=== PATIENT | male | born 1990 | race Caucasian/White ===

== ENCOUNTER 2018-07-16 12:00 | Emergency (ER) | payer OTHER, SELFPAY ==
[2018-07-16 12:07] VITALS: BP 150/87; PULSE 76; RESP 18; TEMP 36.7; O2SAT 97
--- NOTE | 2018-07-16 13:18 | ED.GENADUL_ITS ---
Discharge Plan Disposition Patient Disposition: HOME Condition: Stable Discharge Details Chief Complaint: RespSymp Clinical Impression: Influenza A Primary Care Provider: Debi,Local ED Provider: Karen Ortiz Discharge Instructions Instructions: H1N1 Influenza (ED) Additional Instructions: Drink plenty of fluids and get plenty of rest. Take Tylenol or Motrin as needed and directed for pain. You will receive a call from care management regarding a follow-up appoint with the primary care doctor. Return immediately to the emergency department with any worsening or new concerning symptoms. Stand Alone Forms: Work Release Discharge Data Discharge Date/Time-TO BE ENTERED AT DEPARTURE: 07/16/18 15:01 Discharge Physician: Karen Ortiz Medical Decision Making 28-year-old male with no past medical history who presents with tactile fevers, nasal congestion, cough with green sputum, chest congestion for the past 3 days. Patient denies chest pain, shortness of breath, sore throat, ear pain, vomiting or diarrhea. Patient states he has been taking ilix-dff-incywey medication including NyQuil and Marcia-[place]. Patient states he did not receive a flu shot this year. Blood pressure mildly hypertensive, otherwise vitals within normal limits. Afebrile. Patient appears nontoxic and in no acute distress. Hyperemic nares with mild discharge, otherwise normal ent exam. Lungs CTA. Will check a rapid influenza. 1400 -- rapid influenza positive for influenza A. As patient symptoms are present more than 48 hours, and he has no history of immunodeficiencies, no indication to treatment with Tamiflu at this time patient is agreeable. Instructed on symptomatic treatment, rest and fluids. Medical Records Medical records reviewed: Yes I reviewed the patient's medical records. Lab Data Lab results reviewed: Yes I reviewed the patient's lab results. Influenza A positive HPI General Mode of arrival: ambulatory . Date/Time Provider Initiated Documentation: 07/16/18 12:13 . Limitations to Documentation: no limitations . Information obtained by: patient . HPI Narrative: Patient is a 28-year-old male with no past medical history who presents with tactile fevers, nasal congestion, cough with green sputum, chest congestion for the past 3 days. Patient denies chest pain, shortness of breath, sore throat, ear pain, vomiting or diarrhea. Patient states he has been taking hcjq-qoa-exdrthd medication including NyQuil and [place]cia[place]. Patient states he did not receive a flu shot this year. Related Data Allergies Allergy/AdvReac Type Severity Reaction Status Date / Time No Known Allergies Allergy Unverified 07/16/18 12:11 General Stated Complaint: RespSymp JOANNA: 4 Review of Systems Review of Systems All systems reviewed & are unremarkable except as noted in HPI and below Constitutional Reports as per HPI, Denies chills and Reports fever(s) (tactile) Eyes Denies blurry vision ENT Denies dizziness, Reports nasal congestion, Reports nasal discharge, Denies sore throat and Denies throat swelling Cardiovascular Denies chest pain and Denies dyspnea Respiratory Denies dyspnea Gastrointestinal Denies abdominal pain, Denies diarrhea and Denies vomiting Genitourinary Denies hematuria and Denies dysuria Musculoskeletal Denies back pain and Denies numbness Integumentary/Breasts Denies lesions and Denies rash Neurologic Denies dizziness and Denies numbness Allergic/Immunologic Denies throat swelling PFSH Medical History No significant past medical history (Acute) Surgical History No significant past surgical history (Acute) Social History Smoking/Tobacco Use Status: Never alcohol intake: current alcohol intake frequency: a few times a month substance use type: does not use Exam Const General: cooperative, healthy appearing and no acute distress HENMT Head: normal to inspection Ears: hearing grossly normal bilaterally and TM's normal bilaterally General nose exam: external nose normal, nasal discharge clear bilaterally and other (hyperemic nares) Face and sinus: normal facial exam and sinuses nontender Mouth: oral mucosae normal Teeth and gingiva: dentition normal Throat: posterior oropharynx normal Eyes General: appearance normal, both eyes and all related structures Pupils: PERRL EOM: EOM intact bilaterally Neck Neck: normal visual inspection and No submandibular swelling Lymphatic: no lymphadenopathy noted Resp Effort & Inspection: normal respiratory effort and able to speak in complete sentences Auscultation: clear to auscultation bilaterally Cardio Rate: regular rate Rhythm: regular rhythm Skin General skin exam: no rashes or lesions noted Neuro General: alert, awake and oriented x3 Cognition: normal cognition Speech: speech normal Motor: muscle tone normal throughout Sensory Exam: no sensory deficits noted Extrem General: normal to inspection, full ROM and no edema Psych Appearance: grossly normal Mental Status: mental status grossly normal Speech and Movement: speech and movement normal Affect: normal affect Course Vital Signs Temperature 98.1 F 07/16/18 12:07 Pulse 76 07/16/18 12:07 Respiratory Rate 18 07/16/18 12:07 Blood Pressure 150/87 H 07/16/18 12:07 Pulse Oximetry 97 07/16/18 12:07 Temperature 98.1 F 07/16/18 12:07 Temperature Source Temporal Artery Scan 07/16/18 12:07 Pulse 76 07/16/18 12:07 Respiratory Rate 18 07/16/18 12:07 Respiratory Effort Non-Labored 07/16/18 12:09 Blood Pressure 150/87 H 07/16/18 12:07 Blood Pressure Position Sitting 07/16/18 12:07 Pulse Oximetry 97 07/16/18 12:07 Oxygen Delivery Method Room Air 07/16/18 12:07 Oxygen Flow Rate 0 07/16/18 12:07 Pain Level 0 07/16/18 12:07
--- NOTE | 2018-07-17 08:00 | PDOC.ERCMPRO ---
Care Management Progress Note 07/17-Dr. 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 Referral faxed to [facility] this am.
--- NOTE | 2018-07-17 08:01 | CMPROGNOTE_ITS ---
Care Management Progress Note 07/17-Dr. 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 Referral faxed to [facility] this am.
== END 2018-07-16 15:01 | disposition home or self-care (01) ==
PROVIDERS: Emergency Provider Physician Assistant
DX: J11.1 Influenza due to unidentified influenza virus with other respiratory manifestations (principal)
CPT/HCPCS: 87449; 99282

== ENCOUNTER 2024-09-24 18:05 | Emergency (ER) | payer MEDICAID, SELFPAY ==
[2024-09-24 18:09] VITALS: BP 131/79; PULSE 76; RESP 16; TEMP 36.6; O2SAT 96
--- NOTE | 2024-09-24 18:17 | ED.GENADUL_ITS ---
Discharge Plan Disposition Patient Disposition: Home Condition: Stable Discharge Details Clinical Impression: Laceration of right thigh Primary Care Provider: Harish Coon ED Provider: Jaswant Marsh Home Meds and New Rx's Prescriptions: No Action triamcinolone acetonide 0.1 % cream 1 applic topical BID PRN (Reason: itching) Qty: 30 0RF Rx Instructions: for no longer than 2 weeks at a time escitalopram oxalate 20 mg tablet 20 mg PO DAILY Qty: 90 4RF Discharge Instructions Instructions: Laceration Repair With Stitches ED Additional Instructions: 5 sutures were placed to the cut on your right thigh. These need to be removed in approximately 7 to 10 days. Please keep clean and dry for the next 12 to 24 hours. After that you may wash under running soap and water is in the shower as normal. Allow to air dry at least 1 to 2 hours a day. Return to the ER for any signs of infection including red streaks, drainage swelling or concerns. Please take Tylenol or Ibuprofen with food every 4-6 hours as needed for pain and swelling. Thank you for allowing us to care for you today. Referrals: Harish Coon, FOREST FIRE PREVENTION SPECIALIST [Primary Care Provider] - 1 week HPI General Date/Time Provider Initiated Documentation: 09/24/24 18:17 . HPI Narrative: MDM Patient overall quite well-appearing normothermic and not tachycardic 34-year-old male with right thigh hemostatic laceration that violates the subcutaneous tissue for which patient was treated with nonabsorbable sutures. No pain out of proportion to suggest necrotizing soft tissue infection. Patient is admitted ambulatory in his wound is relatively superficial so I am not suspicious for any acute osseous abnormality. Patient is not anticoagulated and has no increased risk for additional bleeding. Patient had his tetanus updated within the past several years. Patient I discussed that he should return to the ED for streaking signs of infection, any foul-smelling drainage or any fever. Please see separate procedure note from Leila Michel who completed the laceration repair after I was pulled away. HPI This is a previously healthy 34-year-old male not anticoagulated right emergency department via private vehicle in the setting of a laceration he sustained earlier today to his right medial thigh. 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 He notes that his tetanus have been updated several years ago. He has been ambulatory since his injury. He denies any other injuries. Exam General: Well-appearing in no acute distress speaking in complete sentences. Head: Normocephalic, atraumatic. Eye: Extraocular eye movements intact. No conjunctival injection. No scleral icterus. Ear, nose, mouth, throat: Grossly normal inspection. Normal voice, handling secretions normally. Neck: Trachea midline. Cardiovascular: Well-perfused distal extremities. Respiratory: Nonlabored respiration. Gastrointestinal: Nondistended abdomen. Musculoskeletal: No edema. Moving all 4 extremities spontaneously. On the medial aspect of the right mid thigh there is a hemostatic approximately 3 cm laceration that violates the subcutaneous tissue. Skin: Normal for age and race, grossly normal temperature and turgor. No acute rash. Neurologic: Alert and appropriate, no apparent acute deficits. GCS 15. Psychiatric: Mood and manner are appropriate. Grooming and personal hygiene are appropriate. Related Data Home Medications ?Medication ?Instructions ?Recorded ?Confirmed triamcinolone acetonide 0.1 % 1 applic topical BID PRN itching 03/14/23 09/24/24 topical cream #30 grams escitalopram oxalate 20 mg tablet 20 mg PO DAILY #90 tabs 03/15/24 09/24/24 Previous Rx's ?Medication ?Instructions ?Recorded triamcinolone acetonide 0.1 % 1 applic topical BID PRN itching 03/14/23 topical cream #30 grams escitalopram oxalate 20 mg tablet 20 mg PO DAILY #90 tabs 03/15/24 Allergies Allergy/AdvReac Type Severity Reaction Status Date / Time No Known Allergies Allergy Unverified 09/24/24 18:10 General Stated Complaint: Laceration JOANNA: 4 Course Vital Signs Vital signs: Vital Signs Temperature 36.6 C 09/24/24 18:09 Pulse 76 09/24/24 18:09 Respiratory Rate 16 09/24/24 18:09 Blood Pressure 131/79 09/24/24 18:09 Pulse Oximetry 96 09/24/24 18:09 Temperature 36.6 C 09/24/24 18:09 Pulse 76 09/24/24 18:09 Respiratory Rate 16 09/24/24 18:09 Blood Pressure 131/79 09/24/24 18:09 Pulse Oximetry 96 09/24/24 18:09 Procedure Laceration Laceration 1: Date of Procedure: 09/24/24 Time of procedure: 19:00 Patient Consented: Verbally Site: lower extremity Side (If applicable): right Description: linear Depth: simple, single layer Local anesthetic: LET(lidocaine epinephrine tetracaine) Pre-repair:: irrigated extensively (Irrigated by patient's nurse Kaitlin.) Skin layer closed with: other (3-0 Prolene) Suture size: 3-0 Number of sutures:: 1 Technique: simple, interrupted Procedure Description/Note: I placed 1 suture. Please see Leila Michel's note for remaining sutures as I handed the patient off to her to finish his procedure. In total patient had 5 sutures. Medical Decision Making Quality:SDOH Health Related Social Needs: No Data to Display PFSH All Active Problems (Updated 09/24/24 @ 19:31 by Katharina Don NP) Laceration of right thigh (Acute) Depression with anxiety (Acute) Medical History (Updated 09/24/24 @ 19:31 by Katharina Don NP) No significant past medical history Surgical History No significant past surgical history Family History Maternal Grandmother Heart disease Maternal Grandfather Depression Cancer Social History Smoking/Tobacco Use Status: Never Smoking risk assessment performed?: Yes Alcohol Intake: current Alcohol Intake frequency: 0-2 drinks per day Alcohol type: beer Drug use: Never Substance use type: does not use Caregiver/Support person: No Household members: spouse Housing: house Communication Needs: None Do you need help understanding health information?: Never Pets and animals: Yes Sexually active: Yes Current gender identity: male What is your relationship status?: How often do you talk on the phone with friends or family?: once per week How often do you get together with friends or relatives?: once per week How often do you attend scientology or yazdanism services?: 1-3 times per year Do you belong to any clubs or organized social groups?: no Panel score (0-1 are the most socially isolated patients): 1 What type of physical activity do you participate in: bicycling and regular exercise Duration: 60-90 minutes/day Frequency: 5-6 times per week Katia/Episcopal: No preference Seatbelt use: never Helmet use: Yes Helmet use: always Drive intox or ride w/intox driver license reviewing officer: Yes Drive intox or w/intox driver license reviewing officer: rarely Do you feel safe at home: Yes Do you feel safe in your relationship?: Yes
[2024-09-24] MEDS: Lidocaine/Epinephri/Tetracaine Topical Gel 3 ML TP (18:22)
--- NOTE | 2024-09-24 19:27 | W.ED.PROC ---
Date of service: 09/24/24 Time of Service: 19:27 Procedures Laceration Laceration 1: Site: lower extremity (Anterior thigh) Side (If applicable): right Size (cm): 2.5 Description: irregular Depth: simple, single layer Local anesthetic: Lidocaine 1%, with Epi (Administered by my colleague Dr. Marsh) and LET(lidocaine epinephrine tetracaine) Pre-repair: wound explored, irrigated extensively and deep structures intact Skin layer closed with: nylon Size (cm): 3-0 Number of sutures: 4 Technique: simple, interrupted Medical Decision Making Wound was anesthetized and began to close by my colleague Dr. Marsh ER attending. I finished up the procedure. Patient tolerated well. Four simple interrupted 3.0 Prolene sutures placed. Wound was moderately approximated. Discussed to have sutures removed in 7 to 10 days. Discussed signs of infection and strict return instructions he verbalized understanding. This text was generated using [employer] system, please disregard any oddities of phrase or misspellings. Quality:SDOH Health Related Social Needs: No Data to Display
== END 2024-09-24 19:35 | disposition home or self-care (01) ==
PROVIDERS: Emergency Provider Emergency Medicine; PCP Nurse Practitioner Family
DX: S71.111A Laceration without foreign body, right thigh, initial encounter (principal); W26.8XXA Contact with other sharp object(s), not elsewhere classified, initial encounter
CPT/HCPCS: 12002

== ENCOUNTER 2024-10-02 12:29 | Emergency (ER) | payer MEDICAID, SELFPAY ==
[2024-10-02 12:33] VITALS: BP 143/75; PULSE 56; RESP 18; TEMP 36.6; O2SAT 98
--- NOTE | 2024-10-02 13:07 | ED.GENADUL_ITS ---
Discharge Plan Disposition Patient Disposition: Home Condition: Good Discharge Details Clinical Impression: Encounter for removal of sutures, Encounter for wound re-check Primary Care Provider: Harish Coon ED Provider: Lauro Hyde Home Meds and New Rx's Prescriptions: No Action triamcinolone acetonide 0.1 % cream 1 applic topical BID PRN (Reason: itching) Qty: 30 0RF Rx Instructions: for no longer than 2 weeks at a time escitalopram oxalate 20 mg tablet 20 mg PO DAILY Qty: 90 4RF Discharge Instructions Additional Instructions: At this stage your sutures are not completely ready to come out. Please return in the next 3 to 4 days for reassessment and potential removal at that time. Monitor closely for redness or drainage. If you notice any worsening of your symptoms, or any new symptoms such as vomiting, diarrhea, fever, chills, shortness of breath, chest pain, numbness, weakness, or fainting , please return immediately to the emergency department for reevaluation. Please follow up with your primary care provider as soon as possible for reassessment and reevaluation. As always, it was a pleasure participating in your medical care today. Referrals: Harish Coon, SALES AND SERVICE AGENT [Primary Care Provider] - Discharge Data Discharge Date/Time-TO BE ENTERED AT DEPARTURE: 10/02/24 13:16 HPI General Date/Time Provider Initiated Documentation: 10/02/24 12:34 . HPI Narrative: 34-year-old male presents for wound recheck. The cot a drill bit in the thigh about 8 days ago, had it sutured appropriately, and comes in for removal of sutures. He denies any redness bleeding discharge or drainage. He denies any fever or chills. No significant pain. No other complaints at this time. Related Data Home Medications ?Medication ?Instructions ?Recorded ?Confirmed triamcinolone acetonide 0.1 % 1 applic topical BID PRN itching 03/14/23 10/02/24 topical cream #30 grams escitalopram oxalate 20 mg tablet 20 mg PO DAILY #90 tabs 03/15/24 10/02/24 Previous Rx's ?Medication ?Instructions ?Recorded triamcinolone acetonide 0.1 % 1 applic topical BID PRN itching 03/14/23 topical cream #30 grams escitalopram oxalate 20 mg tablet 20 mg PO DAILY #90 tabs 03/15/24 Allergies Allergy/AdvReac Type Severity Reaction Status Date / Time No Known Allergies Allergy Unverified 10/02/24 12:35 General Stated Complaint: SutureRem JOANNA: 5 Exam Narrative Exam Narrative: 1.Const: Well-nourished, Well-developed, appearing stated age 2.Eyes: PERRL, no conjunctival injection, and symmetrical lids. 3.ENT: Atraumatic external nose and ears. Moist MM. Neck: Symmetric, trachea midline, No thyromegaly. 4.CVS: +S1/S2, Peripheral pulses 2+ and equal in all extremities. Brisk capillary refill in all extremities. 5.RESP: Unlabored respiratory effort. Clear to auscultation bilaterally. No wheezes rales or rhonchi 6.GI: Soft, Nontender/Nondistended, No hepatosplenomegaly. No guarding or rebound. 7.MSK: Normocephalic/Atraumatic, Extremities w/o deformity or ttp No cyanosis or clubbing, Normal movement of all extremities 8.Skin: Laceration on the anterior thigh demonstrate no evidence of redness warmth or drainage. There does appear to be a bit of a scab throughout the suture site, and this does slightly limit the wound edge reapproximation. While there is no evidence of dehiscence, there does not appear to be complete wound edge healing at this stage. Sutures otherwise remain in place. 9.Neuro: child life therapist II-XII grossly intact. Sensation grossly intact, no focal neurologic deficits. 10.Psych: (AAO) x3. Appropriate mood and affect Course Vital Signs Vital signs: Vital Signs Temperature 36.6 C 10/02/24 12:33 Pulse 56 L 10/02/24 12:33 Respiratory Rate 18 10/02/24 12:33 Blood Pressure 143/75 H 10/02/24 12:33 Pulse Oximetry 98 10/02/24 12:33 Temperature 36.6 C 10/02/24 12:33 Temperature Source Oral 10/02/24 12:33 Pulse 56 L 10/02/24 12:33 Respiratory Rate 18 10/02/24 12:33 Blood Pressure 143/75 H 10/02/24 12:33 Blood Pressure Position Sitting 10/02/24 12:33 Pulse Oximetry 98 10/02/24 12:33 Oxygen Delivery Method Room Air 10/02/24 12:33 Oxygen Flow Rate 0 10/02/24 12:33 Pain Level 0 10/02/24 12:33 Medical Decision Making 34-year-old male presents for wound recheck. The cot a drill bit in the thigh about 8 days ago, had it sutured appropriately, and comes in for removal of sutures. He denies any redness bleeding discharge or drainage. He denies any fever or chills. No significant pain. No other complaints at this time. Laceration on the anterior thigh demonstrate no evidence of redness warmth or dr mare. There does appear to be a bit of a scab throughout the suture site, and this does slightly limit the wound edge reapproximation. While there is no evidence of dehiscence, there does not appear to be complete wound edge healing at this stage. Sutures otherwise remain in place. At this time with the lack of complete wound edge healing and reapproximation, I do feel that a few additional days of healing are indicated. A single suture was removed in the center, and this did not lead to any dehiscence, but did confirm the lack of complete wound edge rehealing externally. I suspect there is good internal healing, but due to the nature of the location of the laceration, and the clinical visual findings, I do feel that a few additional days are needed at this time. With no evidence of infection abscess or other abnormalities I do not see any indication for antibiotics. Patient will be discharged home with plan for close follow-up in the next few days and wound recheck here in the ED. I have extensively reviewed the treatment plan and discharge instructions with the patient. I have addressed all patient concerns at this time. The patient was made aware of what symptoms to monitor for that would warrant a return to the emergency department. Discussed the plan with the patient, they demonstrate verbal understanding and agreement with our assessment and plan at this time. The documentation in this chart was dictated using [employer] dictation software. Please excuse any dictation errors. Quality:SDOH Health Related Social Needs: No Data to Display PFSH All Active Problems (Updated 10/02/24 @ 13:09 by Lauro Hyde DO) Encounter for wound re-check (Acute) Encounter for removal of sutures (Acute) Laceration of right thigh (Acute) Depression with anxiety (Acute) Medical History (Updated 04/12/25 @ 13:09 by Lauro Hyde DO) No significant past medical history Surgical History No significant past surgical history Family History Maternal Grandmother Heart disease Maternal Grandfather Depression Cancer Social History Smoking/Tobacco Use Status: Never Smoking risk assessment performed?: Yes Alcohol Intake: current Alcohol Intake frequency: 0-2 drinks per day Alcohol type: beer Drug use: Never Substance use type: does not use Caregiver/Support person: No Household members: spouse Housing: house Communication Needs: None Do you need help understanding health information?: Never Pets and animals: Yes Sexually active: Yes Current gender identity: male What is your relationship status?: How often do you talk on the phone with friends or family?: once per week How often do you get together with friends or relatives?: once per week How often do you attend confucianism or orthodox services?: 1-3 times per year Do you belong to any clubs or organized social groups?: no Panel score (0-1 are the most socially isolated patients): 1 What type of physical activity do you participate in: bicycling and regular exercise Duration: 60-90 minutes/day Frequency: 5-6 times per week Katia/Yazidi: No preference Seatbelt use: never Helmet use: Yes Helmet use: always Drive intox or ride w/intox hole digger truck driver: Yes Drive intox or w/intox hole digger truck driver: rarely Do you feel safe at home: Yes Do you feel safe in your relationship?: Yes
== END 2024-10-02 13:16 | disposition home or self-care (01) ==
PROVIDERS: Emergency Provider Student in an Organized Health Care Education/Training Program; PCP Nurse Practitioner Family
DX: S71.111S Laceration without foreign body, right thigh, sequela (principal); X58.XXXD Exposure to other specified factors, subsequent encounter

== ENCOUNTER 2024-10-06 17:30 | Emergency (ER) | payer MEDICAID, SELFPAY ==
[2024-10-06 17:33] VITALS: BP 131/78; PULSE 59; RESP 14; TEMP 35.3; O2SAT 96
--- NOTE | 2024-10-06 17:59 | ED.GENADUL_ITS ---
Discharge Plan Disposition Patient Disposition: Home Condition: Stable Discharge Details Clinical Impression: Encounter for removal of sutures Primary Care Provider: Harish Coon ED Provider: Tiara Sanchez Home Meds and New Rx's Prescriptions: No Action triamcinolone acetonide 0.1 % cream 1 applic topical BID PRN (Reason: itching) Qty: 30 0RF Rx Instructions: for no longer than 2 weeks at a time escitalopram oxalate 20 mg tablet 20 mg PO DAILY Qty: 90 4RF Discharge Instructions Instructions: Stitches Removal Additional Instructions: You were seen in the emergency department today for evaluation and suture removal, which was performed. Your wound is healing nicely and has no sign of i nfection, but you should continue to monitor, use [id number] antibiotic ointment as needed, and follow-up with your primary care provider for reassessment with any concerns. Thank you for allowing us to be part of your care. Discharge Data Discharge Date/Time-TO BE ENTERED AT DEPARTURE: 10/06/24 18:05 HPI General Mode of arrival: ambulatory . Date/Time Provider Initiated Documentation: 10/06/24 17:56 . Limitations to Documentation: no limitations . Information obtained by: patient, RN/MD and old records reviewed . HPI Narrative: HPI: This is a 34-year-old male patient presenting for suture removal. The patient had a laceration of the upper right thigh, was seen a few days ago for suture removal and the wound required a few more days. The wound was evaluated by the RN prior to my arrival at the patient bedside, was well-approximated and healing without evidence of surrounding infection. The patient himself reports that he has been feeling quite well, with no fever, discharge, redness, or other concerns. This is an isolated complaint and the patient has otherwise been in his normal state of health Exam: Gen: Awake and alert, in no apparent distress HEENT: Non-icteric sclera Neck: Supple obese she has been surfing she is to cover twice Lungs: No apparent respiratory distress, normal respiratory effort. CV: Appears well perfused Abdomen: Non-distended MSK: Moves 4 extremities without apparent limitation in ROM Skin: Visualized skin without rashes, cyanosis. 4 sutures removed by RN, with reported well-approximated laceration and no surrounding redness, induration, or drainage. Neuro: Normal Gait, no obvious focal deficits or facial asymmetry. Speaks in full, clear sentences. Psych: Appropriate for situation. MDM: This is a 34-year-old male patient presenting for suture removal. Differential includes but is not limited to typically healing wound, no evidence for wound infection, abscess or cellulitis. ED Course: Sutures were removed by RN, patient had the opportunity to have all questions answered, and at this time, the patient has had a full medical evaluation and is safe for discharge to home. They are hemodynamically stable, ambulatory, and tolerating PO. They are understanding of the follow-up plan and return precautions. They left our facility without incident. Tiara Sanchez MD Related Data Home Medications ?Medication ?Instructions ?Recorded ?Confirmed triamcinolone acetonide 0.1 % 1 applic topical BID PRN itching 03/14/23 10/06/24 topical cream #30 grams escitalopram oxalate 20 mg tablet 20 mg PO DAILY #90 tabs 03/15/24 10/06/24 Previous Rx's ?Medication ?Instructions ?Recorded triamcinolone acetonide 0.1 % 1 applic topical BID PRN itching 03/14/23 topical cream #30 grams escitalopram oxalate 20 mg tablet 20 mg PO DAILY #90 tabs 03/15/24 Allergies Allergy/AdvReac Type Severity Reaction Status Date / Time No Known Allergies Allergy Unverified 10/06/24 17:36 General Stated Complaint: SutureRem JOANNA: 5 Course Vital Signs Vital signs: Vital Signs Temperature 35.3 C L 10/06/24 17:33 Pulse 59 L 10/06/24 17:33 Respiratory Rate 14 10/06/24 17:33 Blood Pressure 131/78 10/06/24 17:33 Pulse Oximetry 96 10/06/24 17:33 Temperature 35.3 C L 10/06/24 17:33 Pulse 59 L 10/06/24 17:33 Respiratory Rate 14 10/06/24 17:33 Blood Pressure 131/78 10/06/24 17:33 Blood Pressure Position Sitting 10/06/24 17:33 Pulse Oximetry 96 10/06/24 17:33 Oxygen Delivery Method Room Air 10/06/24 17:33 Oxygen Flow Rate 0 10/06/24 17:33 Pain Level 0 10/06/24 17:33 Medical Decision Making Quality:SDOH Health Related Social Needs: No Data to Display PFSH All Active Problems (Updated 10/06/24 @ 17:59 by Tiara Sanchez MD) Encounter for wound re-check (Acute) Encounter for removal of sutures (Acute) Laceration of right thigh (Acute) Depression with anxiety (Acute) Medical History (Updated 10/06/24 @ 17:59 by Tiara Sanchez MD) No significant past medical history Surgical History No significant past surgical history Family History Maternal Grandmother Heart disease Maternal Grandfather Depression Cancer Social History Smoking/Tobacco Use Status: Never Smoking risk assessment performed?: Yes Alcohol Intake: current Alcohol Intake frequency: 0-2 drinks per day Alcohol type: beer Drug use: Never Substance use type: does not use Caregiver/Support person: No Household members: spouse Housing: house Communication Needs: None Do you need help understanding health information?: Never Pets and animals: Yes Sexually active: Yes Current gender identity: male What is your relationship status?: How often do you talk on the phone with friends or family?: once per week How often do you get together with friends or relatives?: once per week How often do you attend synagogue or gnosticism services?: 1-3 times per year Do you belong to any clubs or organized social groups?: no Panel score (0-1 are the most socially isolated patients): 1 What type of physical activity do you participate in: bicycling and regular exercise Duration: 60-90 minutes/day Frequency: 5-6 times per week Katia/Congregation: No preference Seatbelt use: never Helmet use: Yes Helmet use: always Drive intox or ride w/intox 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
== END 2024-10-06 18:05 | disposition home or self-care (01) ==
PROVIDERS: Emergency Provider Emergency Medicine; PCP Nurse Practitioner Family
DX: Z48.02 Encounter for removal of sutures (principal)